=== PATIENT | male | born 1945 | race Caucasian/White ===

== ENCOUNTER 2017-10-09 10:56 | Outpatient (CLI) | payer MEDICARE, BC ==
--- NOTE | 2017-10-09 12:20 | RAD ---
PA AND LATERAL CHEST: Date: 10/09/17 HISTORY: Acute bronchitis for past 10 days. COMPARISON: 01/03/16. FINDINGS: Cardiac silhouette and pulmonary vasculature are within normal limits. The lungs remain clear. There is no interval change from prior exam. Vascular calcifications are seen in ectatic thoracic aorta. IMPRESSION: Stable chest without evidence of an acute cardiopulmonary process. POS: [facility]
== END 2017-10-09 10:57 | disposition home or self-care (01) ==
LOC: SCSRAD 10:56
PROVIDERS: ATTEND Family Medicine
DX: J20.9 Acute bronchitis, unspecified (principal)
CPT/HCPCS: 71046

== ENCOUNTER 2019-06-06 06:59 | Day surgery (SDC) | payer MEDICARE, BC ==
[2019-06-05 13:17] VITALS: BMI 24.7
--- NOTE | 2019-06-06 08:56 | CT ---
CT LUMBAR MYELOGRAM: INDICATIONS: Low back pain and left-sided radiculopathy COMPARISON: Lumbar spinal radiograph from [facility]. Radiograph dated A pril 2011 TECHNIQUE: Multiple CT images were obtained of the lumbar spine following the intrathecal administration of an O mnipaque 200 Msolution. Please see the lumbar myelogram for details concerning the injection technique. Axial, coronal, and sagittal reformatted images were constructed from the raw data. FINDINGS: Visualized retroperitoneal and paravertebral soft tissues: There is a 6.3 cm cyst involving the media l aspect of the right kidney. There is a 3.5 mm nonobstructing calculus involving the inferior pole of the left kidney. There are scattered chronic diverticula. There are mild vascular calcifications s een involving the visualized vasculature. Spinal alignment: There is straightening of the lumbar lordosis Spinal instrumentation or postsurgical change: There is a pedicle screw holes at L2-L4. There is wilfredo d interbody fusion seen at L3. There is a remote superior endplate wedge compression abnormality of L3 that is healed. There is incorporated osseous bone graft spanning the facet complexes bilaterally at L2-3. There is an interval remote mild superior endplate wedge compression fracture of L1. Small amount of epidural contrast is seen overlying the L3-L5 vertebral levels posteriorly related to injec tion technique. At L5-S1, there is a mild broad-based disc bulge with loss of disc space height and mild facet hypert rophy inducing mild neural foraminal narrowing bilaterally.. At L4-5, there is a mild broad-based bulge with facet hypertrophy inducing mild neural foraminal narr owing. At L3-4, there is a mild broad-based bulge with mild facet hypertrophy inducing minimal to mild neura l foraminal encroachment. At L2-3, there is a mild osteophyte complex causing mild ventral effacement of the thecal sac without appreciable central canal or neural foraminal narrowing. At L1-L2, there is a mild broad-based bulge with facet hypertrophy without appreciable central canal or neural foraminal narrowing At T12-L1, there is no appreciable central canal or neuroforaminal narrowing. IMPRESSION: 1. Solid osseous fusion of the L2-3 intervertebral level, both within the interbody region and invol ving the facet complexes bilaterally. 2. Chronic L1 and L3 wedge compression fractures 3. Mild spondylosis of the lumbar spine with multilevel mild neural foraminal narrowing. 4. Right renal cyst and left nephrolithiasis 5. Colonic diverticulosis
--- NOTE | 2019-06-06 08:58 | RAD ---
LUMBAR MYELOGRAM: INDICATION: Low back pain with left-sided radiculopathy TECHNIQUE: Informed consent was obtained. Preprocedure novelty balloon assembler and packer images were performed for guidance purposes. Site overlying the left L3-4interlaminar space was marked. The site was prepped and draped in the usu al sterile fashion. Buffered 1% lidocaine was administered to the overlying subcutaneous tissues. Under fluoroscopic guidance, a 22-gauge spinal needle was guided down into the thecal sac. There was spontaneous return of normal appearing CSF fluid. Following this 12 mL of Omnipaque 200 M was injected within the thecal sac. There was fluoroscopic vi sualization of internal nerve roots confirming intrathecal location of needle placement. The inner stylette was replaced within the needle and the needle removed. Pressure was held at the bi opsy site until hemostasis was obtained. The biopsy site was then cleansed and bandage. The patient tolerated the injection without difficulty. Total fluoroscopic time was 0.4 minutes. Total exposure was 329.1microGy/m2. FINDINGS: Remote L1 and L3 compression fractures. Solid osseous incorporation of interbody bone graft at L2-3. There is mild multilevel spondylosis. IMPRESSION: Successful lumbar myelogram
[2019-06-06 12:34] VITALS: BP 147/98; TEMP 98.2
[2019-06-06] MEDS ORDERED: Iopamidol-M 200 41% 20 ML VIAL ONE (15:55)
== END 2019-06-06 07:33 | disposition home or self-care (01) ==
LOC: RAD 06:59
PROVIDERS: ATTEND Neurological Surgery
PROC: B02B1ZZ Computerized Tomography (CT Scan) of Spinal Cord using Low Osmolar Contrast (ICD-10-PCS; principal; 2019-06-06)
DX: M47.26 Other spondylosis with radiculopathy, lumbar region (principal); M48.061 Spinal stenosis, lumbar region without neurogenic claudication; S32.030A Wedge compression fracture of third lumbar vertebra, initial encounter for closed fracture; S32.010A Wedge compression fracture of first lumbar vertebra, initial encounter for closed fracture; K57.30 Diverticulosis of large intestine without perforation or abscess without bleeding; N20.0 Calculus of kidney; K21.9 Gastro-esophageal reflux disease without esophagitis; I10 Essential (primary) hypertension; E11.9 Type 2 diabetes mellitus without complications; Z79.84 Long term (current) use of oral hypoglycemic drugs; Z79.899 Other long term (current) drug therapy; Z88.8 Allergy status to other drugs, medicaments and biological substances; Z98.1 Arthrodesis status
CPT/HCPCS: 62304; 72132; Q9966

== ENCOUNTER 2021-08-13 13:59 | Inpatient (IN) | payer MEDICARE, BC ==
[~2021-08-13 13:59] MED LIST: Iopamidol-370 76% 500 ML 1 ML ONE
[2021-08-13] MEDS ORDERED: Morphine 4 MG/ML VIAL ONE (14:25)
[2021-08-13] MEDS ORDERED: Ondansetron PF 4 MG/2 ML Vial ONE (14:26)
[2021-08-13 14:31] LABS: #Basophils 0.2 thou/uL (0.0-0.2); #Lymphocytes 0.3 thou/uL (1.20-3.40); #Monocytes 0.8 thou/uL (0.11-0.59); #Neutrophils 14.5 thou/uL (1.40-6.50); %Basophils 1.2 % (0.0-1.0); %Eosinophils 0.1 % (0.0-10.0); %Lymphocytes 1.9 % (21.0-51.0); %Monocytes 5.2 % (0.0-10.0); %Neutrophils 91.6 % (42.0-75.0); Hemoglobin 13.8 g/dL (14.0-18.0); Mean Corpuscular HGB CONC 33.3 g/dL (32.0-36.0); Mean Corpuscular Hemoglobin 30.2 pg (27.0-31.0); Mean Corpuscular Volume 90.6 fL (78.0-98.0); Mean Platelet Volume 7.6 fL (7.4-10.4); Platelet Count 193 thou/uL (130-400); Red Blood Cell (RBC) Count 4.56 mill/uL (4.70-6.10); White Blood Cell (WBC) Count 15.9 thou/uL (4.8-10.8)
[2021-08-13 14:51] LABS: ALT (SGPT) 11 U/L (8-55); AST (SGOT) 12 U/L (5-34); Albumin 4.2 g/dL (3.4-4.8); Alkaline Phosphatase 61 U/L (40-110); Anion Gap 17 mmol/L (10-20); BUN (Urea Nitrogen) 19 mg/dL (8.4-25.7); Bilirubin, Total 1.3 mg/dL (0.2-1.2); Calc. Creatinine Clearance 0 mL/min (70-130); Calcium 9.5 mg/dL (7.8-10.44); Carbon Dioxide 25 mmol/L (23-31); Chloride 97 mmol/L (98-107); Globulin 3.3 g/dL (2.4-3.5); Glucose 177 mg/dL (83-110); Lipase 14 U/L (8-78); Potassium 4.1 mmol/L (3.5-5.1); Protein, Total 7.5 g/dL (5.8-8.1); Sodium 135 mmol/L (136-145)
[2021-08-13] MEDS ORDERED: HYDROmorphone 0.5 MG/0.5 ML SYRINGE ONE ×2 (14:55→16:24)
[2021-08-13] MEDS ORDERED: Morphine 2 MG/ML VIAL SLOW IVP PRN (16:13)
[2021-08-13] MEDS ORDERED: HumaLOG 300 UNITS/3 ML VIAL SC PRN (16:13)
[2021-08-13] MEDS ORDERED: Dextrose 5% in Water 1,000 ML IV PRN (16:13)
[2021-08-13] MEDS ORDERED: Ondansetron PF 4 MG/2 ML Vial IVP PRN (16:13)
[2021-08-13] MEDS ORDERED: hydrALAZINE 20 MG/ML VIAL SLOW IVP PRN (16:13)
[2021-08-13] MEDS ORDERED: Ondansetron ODT 4 MG TAB PO PRN (16:13)
[2021-08-13] MEDS ORDERED: Dextrose 50% Abboject 50 ML SYRINGE SLOW IVP PRN (16:13)
[2021-08-13] MEDS ORDERED: Morphine 4 MG/ML VIAL SLOW IVP PRN (16:13)
[2021-08-13] MEDS ORDERED: Ketorolac Tromethamine 30 MG/ML VIAL IVP PRN (16:16)
[2021-08-13] MEDS ORDERED: Piperacillin/Tazobactam 3.375 GM VIAL ONE (16:24)
[2021-08-13] MEDS ORDERED: traMADol HCl 50 MG TAB PO PRN (17:00)
[2021-08-13] MEDS ORDERED: Cyclobenzaprine 10 MG TAB PO PRN ×2 (17:00→17:42)
[2021-08-13 17:15] LABS: SARS-CoV-2 NAA Rapid Test Not Detected (NotDetected)
[2021-08-13 17:49] VITALS: BMI 25.8
[2021-08-13] MEDS: Sodium Chloride 0.9% 1,000 ML IV SCH ×2 (17:59→18:18)
[2021-08-13] MEDS: Famotidine/PF 20 mg/2ml Vial SLOW IVP SCH (20:11)
[2021-08-13] MEDS: Piperacillin/Tazobactam 3.375 GM in Sodium Chloride 0.9% 100 ML IVPB SCH (20:11)
[2021-08-13] MEDS: Carvedilol 25 MG TAB PO SCH (20:11)
[2021-08-13] MEDS ORDERED: Enoxaparin Sodium 40 MG/0.4 ML SYRINGE SC SCH (21:00)
[2021-08-13] MEDS: Azelastine 137 MCG/Spray 30 ML NS SCH (21:32)
[2021-08-14] MEDS: Piperacillin/Tazobactam 3.375 GM in Sodium Chloride 0.9% 100 ML IVPB SCH (04:55)
[2021-08-14] MEDS ORDERED: EPINEPHrine 1 MG/ML AMP ONE (06:58)
[2021-08-14] MEDS ORDERED: Bupivacaine PF 0.5% 30 ML VIAL ONE (06:58)
[2021-08-14] MEDS ORDERED: Iothalamate Meglumine 60% 50 ML VIAL FS ONE (06:58)
[2021-08-14] MEDS ORDERED: Fentanyl 100 MCG/2 ML VIAL ONE (07:08)
[2021-08-14] MEDS ORDERED: HYDROmorphone 0.5 MG/0.5 ML SYRINGE ONE (07:09)
[2021-08-14] MEDS ORDERED: Ketamine 50 MG/ML (10ML VIAL) ONE (07:09)
[2021-08-14 07:27] LABS: ALT (SGPT) 10 U/L (8-55); AST (SGOT) 11 U/L (5-34); Albumin 3.4 g/dL (3.4-4.8); Alkaline Phosphatase 48 U/L (40-110); Anion Gap 12 mmol/L (10-20); BUN (Urea Nitrogen) 21 mg/dL (8.4-25.7); Bilirubin, Total 0.7 mg/dL (0.2-1.2); Calc. Creatinine Clearance 54 mL/min (70-130); Calcium 8.6 mg/dL (7.8-10.44); Carbon Dioxide 24 mmol/L (23-31); Chloride 103 mmol/L (98-107); Glucose 106 mg/dL (83-110); Potassium 3.9 mmol/L (3.5-5.1); Protein, Total 6.4 g/dL (5.8-8.1); Sodium 135 mmol/L (136-145)
[2021-08-14 07:57] LABS: Band 35 % (5-11); Hemoglobin 11.4 g/dL (14.0-18.0); Lymphocytes 1 % (21-51); MDiff Complete? YES; Mean Corpuscular HGB CONC 31.6 g/dL (32.0-36.0); Mean Corpuscular Hemoglobin 28.9 pg (27.0-31.0); Mean Corpuscular Volume 91.4 fL (78.0-98.0); Mean Platelet Volume 8.4 fL (7.4-10.4); Monocytes 6 % (0-10); Neutrophil 56 % (42-75); Platelet Count 152 thou/uL (130-400); Platelet Morphology Comment Appears Adequate; RBC Morphology Normal; Reactive Lymphocytes 2 % (0-10); Red Blood Cell (RBC) Count 3.96 mill/uL (4.70-6.10); White Blood Cell (WBC) Count 11.9 thou/uL (4.8-10.8)
[2021-08-14] MEDS: Azelastine 137 MCG/Spray 30 ML NS SCH (08:02)
[2021-08-14] MEDS: Famotidine/PF 20 mg/2ml Vial SLOW IVP SCH (08:02)
[2021-08-14] MEDS: Carvedilol 25 MG TAB PO SCH (08:03)
[2021-08-14] MEDS ORDERED: Dexamethasone 20 MG/5 ML VIAL ONE (08:14)
[2021-08-14] MEDS ORDERED: ePHEDrine 50 MG/ML VIAL ONE (08:14)
[2021-08-14] MEDS ORDERED: PROPOFOL 200 MG/20 ML VIAL ONE (08:14)
[2021-08-14] MEDS ORDERED: Succinylcholine 200 MG/10 ml SYRINGE FS ONE (08:14)
[2021-08-14] MEDS ORDERED: Rocuronium Bromide 10 MG/ML (10ML VIAL) ONE (08:14)
[2021-08-14] MEDS ORDERED: PHENYLEPHRINE-NS 100 MCG/ML 10 ML SYRINGE ONE (08:14)
[2021-08-14] MEDS ORDERED: Lidocaine 1% PF 5 ML VIAL ONE (08:14)
[2021-08-14] MEDS ORDERED: Ondansetron PF 4 MG/2 ML Vial ONE (08:14)
[2021-08-14] MEDS ORDERED: Glycopyrrolate 0.2 MG/ML 5 ML SYRINGE ONE (08:14)
[2021-08-14] MEDS ORDERED: Ketorolac Tromethamine 30 MG/ML VIAL ONE (08:14)
[2021-08-14] MEDS ORDERED: Amlodipine 5 MG TAB PO SCH (09:00)
[2021-08-14] MEDS ORDERED: SUGAMMADEX SODIUM 200 MG/2 ML VIAL ONE (09:01)
[2021-08-14] MEDS ORDERED: Acetaminophen 500 MG TAB PO PRN (09:48)
[2021-08-14] MEDS ORDERED: Ibuprofen 600 MG TAB PO PRN (09:48)
[2021-08-14 13:29] VITALS: BP 109/72; TEMP 98
[2021-08-14] MEDS: Sodium Chloride 0.9% 1,000 ML IV SCH (17:31)
[2021-08-15] MEDS ORDERED: metFORMIN 500 MG TAB PO SCH (08:00)
== END 2021-08-14 17:31 | disposition home or self-care (01) | DRG 419 ==
LOC: ERS 13:59 → SURG B 16:13
PROVIDERS: ADMIT Specialist; ATTEND Specialist
PROC: 0FT44ZZ Resection of Gallbladder, Percutaneous Endoscopic Approach (ICD-10-PCS; principal; 2021-08-14)
DX: K82.A1 Gangrene of gallbladder in cholecystitis (principal); Z20.822 Contact with and (suspected) exposure to COVID-19; E11.9 Type 2 diabetes mellitus without complications; I10 Essential (primary) hypertension; Z88.8 Allergy status to other drugs, medicaments and biological substances; Z79.899 Other long term (current) drug therapy; Z79.84 Long term (current) use of oral hypoglycemic drugs; G89.29 Other chronic pain; M54.9 Dorsalgia, unspecified
CPT/HCPCS: 36415; 36416; 74177; 76705; 80053; 83690; 85025; 88304; 93005; 96365; 96375; 96376; C1713; J0171; J1100; J1170; J1610; J1885; J2270; J2405; J2543; J2704; J3010; J3490; J7050; Q9961-U8; Q9967; S0020; S0028; U0002